=== PATIENT | female | born 1980 | race Caucasian/White ===

== ENCOUNTER 2019-09-24 10:08 | Outpatient (CLI) | payer OTHER, SELFPAY ==
--- NOTE | ~2019-09-24 | XR_ITS ---
EXAMINATION: XR forearm RT 2V DATE: 09/24/2019 10:34 INDICATION: Right forearm pain. TECHNIQUE: 2 views of right forearm were obtained. COMPARISON: Right hand radiographs 02/18/2018 FINDINGS: Bone alignment is normal. No fracture. Joint spaces are well maintained. There is no elbow joint effusion. IMPRESSION: 1. Normal right forearm. Reviewed, dictated and finalized at location A. 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 Normal right forearm.
== END 2019-09-24 10:09 ==
PROVIDERS: PCP Family Medicine Adolescent Medicine; Visit Provider Physician Assistant
DX: M25.531 Pain in right wrist (principal)
CPT/HCPCS: 73090

== ENCOUNTER 2020-06-30 07:00 | Outpatient (NON) | payer OTHER, SELFPAY ==
[2020-07-01 12:14] LABS: SARS-CoV-2 RNA PCR Negative
== END 2020-06-30 07:01 ==
PROVIDERS: PCP Family Medicine Adolescent Medicine; Visit Provider Family Medicine Adolescent Medicine
DX: Z20.828 Contact with and (suspected) exposure to other viral communicable diseases (principal); R05 Cough; R52 Pain, unspecified
CPT/HCPCS: 87635; C9803; U0003

== ENCOUNTER 2021-04-07 10:00 | Outpatient (CLI) | payer OTHER, SELFPAY ==
--- NOTE | ~2021-04-07 | XR_ITS ---
XR hip RT min 2V 04/07/2021 10:51 Indication: Right hip pain Procedure: 2 views right hip Comparison: No prior studies for comparison. Findings: No fracture, subluxation or dislocation. No significant soft tissue abnormality. No foreign bodies. No significant soft tissue abnormality. Impression: 1: No significant bone or joint abnormality. Reviewed, dictated and finalized at location A. Impression: 1: No significant bone or joint abnormality.
== END 2021-04-07 10:01 ==
PROVIDERS: PCP Family Medicine Adolescent Medicine; Visit Provider Physician Assistant
DX: M25.551 Pain in right hip (principal)
CPT/HCPCS: 73502

== ENCOUNTER 2022-06-29 08:52 | Outpatient (CLI) | payer BC, SELFPAY ==
--- NOTE | ~2022-06-29 | CT_ITS ---
EXAMINATION: CT abdomen pelvis w con DATE: 06/29/2022 10:04 INDICATION: Lower abdominal pain, predominantly on the right TECHNIQUE: Computed tomography (CT) of the abdomen and pelvis was performed with 100 CC Omnipaque 350 intravenous contrast. Automated exposure control and iterative reconstruction technique were employe d. Exam dose: 264.65 mGy-cm total exam DLP. COMPARISON: None. FINDINGS: The lung bases are clear of infiltrate or consolidation. Normal heart size. No pericardial or pleural effusion. Bilateral breast implants are noted. The liver, gallbladder, bile ducts, pancreatic duct, pancreas, spleen and adrenal glands and kidneys are unremarkable.. Normal caliber of the abdominal aorta. No intraperitoneal or retroperitoneal or pelvic mass lesion or adenopathy or ascites. 2.1 cm left ovarian cyst. Normal appendix. No bowel obstruction or intraperitoneal free air. Very small fat-containing umbilical hernia. Included skeletal structures are unremarkable. IMPRESSION: Normal appendix 2 x 1 cm left ovarian cyst Reviewed, dictated and finalized at Location A. Reviewed, dictated and finalized at location B. 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
== END 2022-06-29 08:53 | disposition home or self-care (01) ==
PROVIDERS: PCP Family Medicine Adolescent Medicine; Visit Provider Physician Assistant
DX: R10.30 Lower abdominal pain, unspecified (principal); N83.202 Unspecified ovarian cyst, left side
CPT/HCPCS: 74177; Q9967

== ENCOUNTER 2022-07-13 00:48 | Day surgery (SDC) | payer BC, MEDICAID, SELFPAY ==
[2022-07-04 12:00] VITALS: BMI 23.6
--- NOTE | 2022-07-04 12:05 | PC.NURSE ---
Report to the Outpatient Waiting Room, entrance under the green pavilion located off [facility], at time 1130 on date 07/13/22. Planned Procedure Time: 1330. Time changes happen often and if your time is changed the preop area will call you the afternoon before. - You and your visitor will be asked to self-screen and do not enter if you have any COVID symptoms. - Only one visitor is requested with a max of two and NO children visitors are allowed at this time. - The patient visitor may be requested to leave or wait in car when not with patient due to distancing restrictions. - A mask is optional within the hospital. Patients may have clear liquids (water, carbonated beverages, clear teas, apple juice) until 3 hours prior to surgery with a maximum of 20 ounces. - No food from midnight until time of surgery Take the following medications with a SIP of water the morning of surgery: NONE Medications to discontinue per physician: VITAMINS/SUPPLEMENTS Date to take last dose: 07/09/22 Please no make-up, nail new zealander, hairspray, perfume, deodorant, or body powder the day of surgery. No jewelry (including any body piercings) or valuables the day of surgery, leave them at home. Please take a shower or bath the night before, or the morning of, surgery with an antibacterial soap. Wear comfortable, loose fitting clothing. - Jewelry must be removed prior to entering the operating room. Rings and piercings that are not removed may be cut off. - The hospital will not accept responsibility for valuables. - Please leave all valuables, including medications, at home the day of surgery. If you are going home after surgery, a licensed heavy truck driver must drive you home. - NO public transportation without another adult if you receive anesthesia. - We recommend that an adult stay with you for 24 hours following discharge. - We also recommend that you do not drive, make important decision, drink alcoholic beverages, or take any drugs that were not prescribed by your health care provider for at least 24 hours after your discharge time. Follow any additional instructions given to you from your surgeon. If you or anyone in your household have experienced Covid symptoms in the past week, please notify your surgeon or the nurse liaison at the phone number below for possible testing. Telephone instructions given to PT - HOLLI CALVO and asked if any additional questions and then verbalized understanding. Patient advised to call surgeon office or pre surgery nurse liaison [phone] if any additional questions.
--- NOTE | 2022-07-10 07:47 | PM.IMHP ---
H&P: HPI History of Present Illness Date/Time: 07/10/22 07:47 Chief Complaint: pain in left ovarian cyst Narrative: this 42-year-old 3 para 3 status post hysterectomy is admitted for laparoscopic LSO. She has complex left ovarian cyst on ultrasound. Risks and benefits reviewed including not exclusive of , aspiration pneumonia, bleeding, transfusion, perforation under bowel, bladder, ureters, or other internal organs with need for open laparotomy. She had all questions answered as to proceed PMF Surgical History Surgical History H/O: hysterectomy Hx of tubal ligation Family History Family History Father Hypertension CAD (coronary artery disease) History of multiple strokes Social History Social History Years smoked: 25 Smoking status: Current every day smoker Tobacco type: cigarettes Alcohol intake: current Drinks per week: 12 Alcohol use details: WEEKENDS Substance use: current Substance use type: marijuana Living arrangements: with family Gender identity (if verbalized by the patient): Female Spiritual care concerns: No Meds Home Medications and Allergies Home Medications Medication Instructions Recorded Confirmed Type psyllium seed (sugar) oral powder 1 tsp PO BID 07/04/22 07/04/22 History Allergies Allergy/AdvReac Type Severity Reaction Status Date / Time Sulfa (Sulfonamide AdvReac Severe swollen Verified 07/04/22 12:00 Antibiotics) glands codeine AdvReac Unknown N&V Verified 07/04/22 12:00 hydrocodone AdvReac Unknown N&V Verified 07/04/22 12:00 Exam Const: General: cooperative, healthy appearing and comfortable Nutritional Appearance: average body habitus Orientation/consciousness: oriented to person, oriented to place and oriented to time HENMT: Head: normal to inspection Resp: Effort & Inspection: normal respiratory effort Cardio: Rate: regular rate Rhythm: regular rhythm Heart sounds: S1 normal heart sound present and S2 normal heart sound present GI: Inspection: normal to inspection Auscultation: normal bowel sounds : External Female Exam: normal external appearance Speculum Exam - Vagina: normal appearance of the vagina Speculum Exam - Cervix: Cervix absent Bimanual Exam- Adnexa, other: Adnexal mass present on the left tender Assessment and Plan Assessment and plan (1) Left ovarian cyst: Code(s): N83.202 - Unspecified ovarian cyst, left side Status: Acute Plan laparoscopic left salpingo-oophorectomy
[2022-07-13] VITALS (9 sets, daily range): BP systolic 96–128; BP diastolic 34–88; PULSE 51–104; RESP 12–18; TEMP 36.8–37.2; O2SAT 97–100
--- NOTE | 2022-07-13 06:53 | WPDHPUPDATE1 ---
History and Physical Update Update Date/Time: 07/13/22 06:53 History and Physical has been reviewed, including an updated exam of the patient. There are NO changes in the patient's condition. Risks, benefits, and alternatives have been discussed and questions answered. Patient agrees to proceed with procedure.
[2022-07-13] MEDS: ACETAMINOPHEN 500 MG TABLET 1000 MG PO (09:50)
[2022-07-13] MEDS: LACTATED RINGERS 1,000 ML 30 ML IV CONT ×2 (10:15→12:18)
[2022-07-13] MEDS: KETOROLAC 15 MG/ML VIAL (*BKC) IV PUSH (10:26)
--- NOTE | 2022-07-13 10:38 | P.PNAN_ITS ---
Anes - Initial Pre Proc Eval Procedure: Operation Date: 07/13/22 11:30 Proposed Procedures p Laparoscopic Left Salpingo-oophorectomy - Robin Prasad MD Date/Time: 07/13/22 10:38 Surgeon: Robin Prasad MD Pre Op Diagnosis: Complex Lt Ovarian Cyst Patient Data Age: 42 Gender: F Height: 1.64 m Weight: 60.9 kg Last Vital Signs Temp 37.2 C 07/13/22 10:18 Pulse 78 07/13/22 10:18 Resp 16 07/13/22 10:18 BP 122/74 07/13/22 10:18 Pulse Ox 99 07/13/22 10:18 O2 Del Method Room Air 07/13/22 10:18 Allergies Allergy/AdvReac Type Severity Reaction Status Date / Time Sulfa (Sulfonamide AdvReac Severe swollen Verified 07/13/22 09:37 Antibiotics) glands codeine AdvReac Unknown N&V Verified 07/13/22 09:37 hydrocodone AdvReac Unknown N&V Verified 07/13/22 09:37 Home Medications Medication Instructions Recorded Confirmed Type psyllium seed (sugar) oral powder 1 tsp PO BID 07/04/22 07/13/22 History Patient hx anesthesia problems: none Family hx anesthesia problems: none Results Review: All pre-operative results and documents have been reviewed as part of the pre- operative evaluation. [facility] Surgical History Surgical History H/O: hysterectomy Hx of tubal ligation Family History Family History Father Hypertension CAD (coronary artery disease) History of multiple strokes Social History Social History Years smoked: 25 Smoking status: Current every day smoker Tobacco type: cigarettes Alcohol intake: current Drinks per week: 12 Alcohol use details: WEEKENDS Substance use: current Substance use type: marijuana Living arrangements: with family Gender identity (if verbalized by the patient): Female Spiritual care concerns: No Anes - Eval Final PreProcedure Day of Procedure 07/13/22 10:38 Patient weight: normal Heart: regular rate and rhythm Lungs: clear to auscultation Airway: Mallampati scale class II Neurological: alert and oriented Last oral intake: >/= 8 hours ASA classification: II Emergent: no Anesthetic plan: proceed Anesthesia type and monitoring: general ETT and standard monitoring Results Review: All pre-operative results and documents have been reviewed as part of the pre- operative evaluation. Informed Consent: The patient's anesthetic plan and its attendant risks and benefits were discussed with the patient/family/POA. Questions were solicited and answers provided to the satisfaction of the patient/family/POA.
--- NOTE | 2022-07-13 12:04 | W.PM.PROC2 ---
Procedure Note - Detailed Date of Procedure 07/13/22 Pre-op Diagnosis Complex Lt Ovarian Cyst Post-op Diagnosis Same Procedure Performed Laparoscopic left oophorectomy Surgeon Robin Prasad MD Anesthesia General Indications this is a 42-year-old female status post hysterectomy with severe left-sided pelvic pain. Imaging showed a complex left ovarian cyst Findings uterus was absent as were the tubes. Complex left ovarian cyst which appeared benign. Normal-appearing ovary on the right multiple adhesions from the omentum bowel to the lateral sidewall. Normal-appearing appendix and Description of Procedure gallbladder the patient was prepped draped in the normal sterile fashion placed in the dorsal lithotomy position. Under excellent general trach anesthesia a sponge stick was placed in vagina and the bladder drained of clear urine. The weighted speculum was removed the gloves were changed. A supraumbilical incision made the Veress needle passed in the abdomen. Abdomen filled with CO2 gas [id number]. The 5mm trocar advanced under direct visualization assuring no injury a suprapubic incision made the 5mm trocar advanced under direct visualization assuring injury. A left lower quadrant incision made the 10mm trocar advanced under direct visualization assuring no injury. The above findings were seen . The instruments were used to dissect the adhesions which were densely adherent to the ovary complex as well as the vaginal cuff. LigaSure was used. The infundibulopelvic structure was then skeletonized. Clamping burning and cutting and this was placed in on Endo-Catch and removed through the left lower quadrant. Irrigation was undertaken to clear and no other abnormalities were seen the lower site removed the gas removed from the abdomen the upper sites removed the incisions closed with 4 Monocryl glue. Instruments removed from vagina patient was awakened went trocars aspect condition. All sponge, needle, instrument counts were correct. There were no immediate complications noted Estimated Blood Loss 5 Drains No Packing No Pathology Yes Complications No immediate complications Condition Stable Disposition PACU
[2022-07-13] MEDS: fentaNYL CITRATE INJ (*CRX) 100 MCG/2 ML VIAL 25 MCG IV PUSH ×8 (12:30→13:12)
[2022-07-13] MEDS: ONDANSETRON INJ 4 MG/2 ML VIAL IV PUSH (12:47)
[2022-07-13] MEDS: oxyCODONE HCL (*CRX) 5 MG TAB IR PO (13:32)
[2022-07-13] MEDS: HYDROmorphone HCL INJ (*CRX) 1 MG/ML SYR IV PUSH (14:10)
== END 2022-07-13 14:55 | disposition home or self-care (01) ==
PROVIDERS: PCP Family Medicine Adolescent Medicine; Visit Provider Obstetrics & Gynecology
PROC: (CPT 49320; principal; 2022-07-13 11:30)
DX: N83.12 Corpus luteum cyst of left ovary (principal); N83.02 Follicular cyst of left ovary; F17.210 Nicotine dependence, cigarettes, uncomplicated; F12.90 Cannabis use, unspecified, uncomplicated
CPT/HCPCS: 58661; 36415; 86850; 86900; 86901; 88305; A9270; J1100; J1170; J1885; J2250; J2405; J2704; J2710; J3010; J7030; J7120

== ENCOUNTER → 2024-10-09 12:42 | Outpatient (CLI) | payer OTHER, SELFPAY ==
--- NOTE | ~2024-10-09 | XR_ITS ---
EXAMINATION: XR chest 2V 10/09/2024 12:59 INDICATION: Cough PROCEDURE: 2 view chest COMPARISON: No prior studies for comparison. FINDINGS: The lungs are clear. The cardiomediastinal silhouette is within normal limits. There are no pleural effusions. There is no pneumothorax suspected. There are breast implants. IMPRESSION: 1: NO ACUTE CARDIOPULMONARY DISEASE. Reviewed, dictated and finalized at location B.
== END ==
PROVIDERS: PCP Family Medicine Adolescent Medicine; Visit Provider Family Medicine Adolescent Medicine
DX: R05.9 Cough, unspecified (principal)
CPT/HCPCS: 71046

== ENCOUNTER → 2025-02-12 11:31 | Outpatient (CLI) | payer OTHER, SELFPAY ==
--- NOTE | ~2025-02-12 | XR_ITS ---
XR cervical spine min 6V INDICATION: Neck pain TECHNIQUE: 6 views of the cervical spine. FINDINGS: No prior studies for comparison. The cervical spine is visualized to the cervicothoracic junction. Mild levocurvature of the cervical spine. There is no prevertebral soft tissue swelling, listhesis, or loss of vertebral body height. I ntervertebral disc spaces are normal. The osseous central canal is patent. No displaced cervical sp ine fractures are identified. IMPRESSION: 1. No acute osseous abnormality of the cervical spine. Reviewed, dictated and finalized at location B.
--- NOTE | ~2025-02-12 | XR_ITS ---
XR thoracic spine 3V 02/12/2025 12:42 Indication: Back pain Procedure: 2 views of the thoracic spine Comparison: No prior studies for comparison. Findings: There is mild S-shaped scoliosis of the visualized thoracolumbar spine no fracture, subluxa tion or dislocation. Vertebral body heights are maintained. No paraspinal soft tissue abnormality. Impression: 1: Mild scoliosis. Reviewed, dictated and finalized at location B. Impression: 1: Mild scoliosis.
== END ==
LOC: EXPCRAD 11:34
PROVIDERS: PCP Family Medicine; Visit Provider Family Medicine
DX: M41.9 Scoliosis, unspecified (principal)
CPT/HCPCS: 72052; 72072